=== PATIENT | male | born 1975 | race Hispanic/Latino ===

== ENCOUNTER 2023-03-17 14:03 | Emergency (ER) | payer BC, SELFPAY ==
[2023-03-17] MEDS ORDERED: Ketorolac Tromethamine 30 MG/ML VIAL ONE (15:38)
== END 2023-03-17 15:55 | disposition home or self-care (01) ==
LOC: ERS 14:03
DX: M70.22 Olecranon bursitis, left elbow (principal); Y93.71 Activity, boxing
CPT/HCPCS: 96372; J1885